=== PATIENT | female | born 1995 | race American Indian/Alaskan Native ===

== ENCOUNTER 2018-02-18 17:30 | Emergency (ER) | payer MEDICAID ==
[2018-02-18 17:31] VITALS: BMI 28.1
[2018-02-18 17:36] VITALS: BP 137/85; PULSE 78; RESP 18; TEMP 98.4; O2SAT 99
[2018-02-18 18:47] LABS: SQUAMOUS EPITHIAL 2 /hpf (0-5); URINE BILIRUBIN NEGATIVE (NEGATIVE); URINE BLOOD 1+ (NEGATIVE); URINE CLARITY Clear (Clear); URINE COLOR Yellow (YELLOW); URINE GLUCOSE (UA) NORMAL (Normal); URINE LEUKOCYTE ESTERASE NEG Leu/uL (Negative); URINE PROTEIN NEGATIVE (NEGATIVE); URINE UROBILINOGEN NORMAL mg/dL (0.2-1.0)
--- NOTE | 2018-02-18 18:51 | C.PDOC ---
History Of Present Illness 22 y/o female presents to the ED complaining of occasional frontal headaches, occurring on and off for the past 2 weeks. Currently patient denies headache. Additionally patient is complaining of vaginal spotting for 2 weeks. 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 Time Seen by Provider: 02/18/18 18:04 Chief Complaint (Nursing): Female Genitourinary History Per: Patient History/Exam Limitations: no limitations Onset/Duration Of Symptoms: Days Current Symptoms Are (Timing): Still Present Past Medical History Reviewed: Historical Data, Nursing Documentation, Vital Signs Vital Signs: Last Vital Signs Temp 98.4 F 02/18/18 17:33 Pulse 78 02/18/18 17:33 Resp 18 02/18/18 17:33 BP 137/85 02/18/18 17:33 Pulse Ox 99 02/18/18 18:51 - Medical History PMH: Bipolar Disorder, Depression Denies: Anemia, Asthma, Diabetes, Hepatitis, HIV, HTN, Chronic Kidney Disease , Seizures, Sexually Transmitted Disease Other Surgeries: IUD placement - [facility] GROUP PSYCHOTHERAPY (12/25/17) INDIVIDUAL PSYCHOTHERAPY, COGNITIVE-BEHAVIORAL (12/25/17) INDIVIDUAL PSYCHOTHERAPY, SUPPORTIVE (12/25/17) Family History: States: Unknown Family Hx - Social History Hx Tobacco Use: No Hx Alcohol Use: Yes Hx Substance Use: No - Immunization History Hx Tetanus Toxoid Vaccination: No Hx Influenza Vaccination: No Hx Pneumococcal Vaccination: No Review Of Systems Except As Marked, All Systems Reviewed And Found Negative. Constitutional: Negative for: Fever, Chills Gastrointestinal: Negative for: Nausea, Vomiting, Abdominal Pain Genitourinary: Positive for: Vaginal Bleeding. Negative for: Dysuria, Incontinence, Hematuria, Vaginal Discharge Neurological: Positive for: Headache (now resolved). Negative for: Weakness, Numbness, Dizziness Physical Exam - Physical Exam Appears: Non-toxic, No Acute Distress, Other (Morbidly obese) Skin: Normal Color, Warm, Dry Head: Atraumatic, Normacephalic Eye(s): bilateral: Normal Inspection, PERRL, EOMI Oral Mucosa: Moist Neck: Normal ROM, Supple Chest: Symmetrical Cardiovascular: Rhythm Regular, No Murmur Respiratory: Normal Breath Sounds, No Rales, No Rhonchi, No Wheezing Gastrointestinal/Abdominal: Soft, No Tenderness, No Distention, No Guarding Back: Normal Inspection Extremity: Bilateral: Atraumatic, Normal Color And Temperature, Normal ROM Neurological/Psych: Oriented x3, Normal Speech, Normal Cranial Nerves ED Course And Treatment - Laboratory Results Lab Interpretation: Normal (ua neg.) Urine POC: Negative O2 Sat by Pulse Oximetry: 99 (RA) Pulse Ox Interpretation: Normal - Other Rad abd x 2 X-Ray: Interpreted by Me (normal stool/gas, IUD in proper place) Reevaluation Time: 19:12 Reassessment Condition: Unchanged Medical Decision Making Medical Decision Making: Initial Impression: Intermittent headaches, vaginal spotting Initial Plan: * Urinalysis * Urine preg * X-ray abd flat plate vaginal spotting, may be related to IUD good placement- verified by abd x 2 view ? occasional sinus headaches none now Disposition Doctor Will See Patient In The: Office Counseled Patient/Family Regarding: Studies Performed, Diagnosis - Disposition Disposition: HOME/ ROUTINE Disposition Time: 19:14 Condition: GOOD Forms: [facility] ([facility]) - Clinical Impression Clinical Impression: Vaginal spotting, Chronic headaches - Scribe Statement The provider has reviewed the documentation as recorded by the Scribe (Malena Hawkins) Provider Attestation: All medical record entries made by the Scribe were at my direction and personally dictated by me. I have reviewed the chart and agree that the record accurately reflects my personal performance of the history, physical exam, medical decision making, and the department course for this patient. I have also personally directed, reviewed, and agree with the discharge instructions and disposition.
[2018-02-18 18:53] LABS: HCG,QUALITATIVE URINE NEGATIVE (NEGATIVE)
--- NOTE | 2018-02-19 08:17 | RAD ---
Date of service: 02/18/2018 HISTORY: ? IUD placement COMPARISON: No prior. FINDINGS: BOWEL: Moderate stool retention. No obstruction. No free air. BONES: Trace S-shaped scoliotic curvature suspect. OTHER FINDINGS: IUD projects over the pelvis. Bilateral hemipelvic phleboliths. IMPRESSION: IUD projecting over pelvis. If more specific localization of it is needed, a pelvic ultrasound would be sensitive. Moderate stool retention.
== END 2018-02-18 19:36 | disposition home or self-care (01) ==
LOC: C.ER 17:30
DX: R51 Headache (principal); N93.9 Abnormal uterine and vaginal bleeding, unspecified